=== PATIENT | male | born 1940 | race Caucasian/White ===

== ENCOUNTER → 2018-02-22 09:34 | Outpatient (CLI) | payer OTHER, SELFPAY ==
--- NOTE | 2018-02-22 09:37 | DI.CT.S_ITS ---
PROCEDURE: CT KIDNEY URETER BLADDER (KUB) INDICATIONS: 77 y/o M w/ hematuria Left flank pain, stone protocol TECHNIQUE: Noncontrast 5 mm thick sections acquired from the diaphragms to the symphysis. 5 mm thick coronal and sagittal reformats were then performed. For radiation dose reduction, the following was used: automated exposure control, adjustment of mA and/or kV according to patient size. COMPARISON: [facility], CT, ABDOMEN/PELVIS WITH CONTRAST, 01/08/2010, 0:14. FINDINGS: Image quality: Excellent. Lung bases: There is minimal atelectasis in the lung bases. Heart size is normal. A small hiatal hernia is present. Urinary system: There are 3 small clustered nonobstructing stones within the superior pole the right kidney measuring up to 0.3 cm. No hydronephrosis. There is mild nonspecific bilateral perinephric fat stranding. Both ureters appear non-dilated throughout their expected courses. There is mild concentric bladder wall thickening. No calcified bladder stones. No prostate is slightly enlarged. Other solid organs: There is a cyst in the right hepatic lobe measuring up to 1.4 cm increased from 0.9 cm previously as well as a few scattered additional low-density foci in the right and left lobes which are too small to characterize but likely represent cysts. 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 These demonstrate slight increase in size compared to the prior study. There is a small calcified gallstone in the gallbladder without wall thickening or pericholecystic fluid. Pancreas is normal in contours. Spleen is normal in size. No adrenal nodules. Peritoneum and bowel: Unenhanced bowel loops demonstrate normal wall thickness and caliber. The appendix is normal in appearance. Colonic diverticulosis is present without acute diverticulitis. No free fluid or air. Nodes and vessels: No retroperitoneal or mesenteric adenopathy by size criteria. Aorta and inferior vena cava are normal in caliber. Abdominal wall: No ventral hernias. Pelvis: No free pelvic fluid. No inguinal hernias or adenopathy. Bones: No suspicious bony lesions. No vertebral body compression fractures. IMPRESSION: 1. Right nephrolithiasis without evidence of obstructive uropathy. 2. Mild concentric bladder wall thickening may reflect a mild cystitis or sequelae of chronic bladder outlet obstruction given the presence of prostatic enlargement. 3. Cholelithiasis. 4. Diverticulosis. Dictated by: Dano Renae M.D. on 02/22/2018 at 10:28 Approved by: Dano Renae M.D. on 02/22/2018 at 10:35
== END ==
PROVIDERS: Visit Provider Physician Assistant
DX: N20.0 Calculus of kidney (principal); N40.0 Benign prostatic hyperplasia without lower urinary tract symptoms; R31.9 Hematuria, unspecified; K80.20 Calculus of gallbladder without cholecystitis without obstruction; K57.90 Diverticulosis of intestine, part unspecified, without perforation or abscess without bleeding
CPT/HCPCS: 74176

== ENCOUNTER 2019-06-09 16:49 | Emergency (ER) | payer OTHER, SELFPAY ==
[2019-06-09 16:58] VITALS: BP 145/72; PULSE 72; RESP 14; TEMP 36.4; O2SAT 97; BMI 21.3
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
[2019-06-09] MEDS: LIDOCAINE 1% (PF) 4 ML INJ (18:14)
[2019-06-09] MEDS: HYDROCODONE/ACET 5/325 TABLET 1 TAB PO (18:31)
[2019-06-09] MEDS: BACITRACIN OINT 0.9 GM PCKT 1 APPLIC TOP (18:32)
[2019-06-09] MEDS: HYDROGEN PEROXIDE 118 ML SOLUTION 60 ML TOP (18:50)
[2019-06-09 19:33] VITALS: BP 132/78; PULSE 72; RESP 18; O2SAT 98
--- NOTE | 2019-06-09 19:35 | PC.NURSE ---
multiple abrasions to face washed w/ bacitracin cover. Right ear lacerations dermabonded by Dr. Palencia. Sling to right arm w/ ice pack. Long discussion regarding expectation of bruising and increased generalized discomfort. Encouraged to be mobile, stretch and use ice to point tenderness with warmth for general relaxation.
== END 2019-06-09 19:39 | disposition home or self-care (01) ==
PROVIDERS: Emergency Provider Emergency Medicine; PCP Family Medicine Addiction Medicine
DX: S01.511A Laceration without foreign body of lip, initial encounter (principal); S50.311A Abrasion of right elbow, initial encounter; S60.812A Abrasion of left wrist, initial encounter; S60.811A Abrasion of right wrist, initial encounter; S52.021A Displaced fracture of olecranon process without intraarticular extension of right ulna, initial encounter for closed fracture; V19.9XXA Pedal cyclist (driver) (passenger) injured in unspecified traffic accident, initial encounter
CPT/HCPCS: 12011; 29105; 70450; 73080; 99283; 99284

== ENCOUNTER 2019-06-12 12:39 | Day surgery (SDC) | payer OTHER, SELFPAY ==
[2019-06-11 12:38] VITALS: BMI 21.1
[2019-06-12] VITALS (9 sets, daily range): BP systolic 115–172; BP diastolic 73–90; PULSE 61–68; RESP 8–16; TEMP 36.2–37.3; O2SAT 94–98; BMI 21.1
[2019-06-12] MEDS: LACTATED RINGERS 1,000 ML 42 ML IV ×2 (13:47→16:58)
--- NOTE | 2019-06-12 14:23 | PM.PREOP ---
Pre-operative Note Interval Note History & Physical reviewed/Exam performed by Physician: Yes Changes to H&P: No
[2019-06-12] MEDS: CEFAZOLIN 2 GM/100 ML FROZ.PIGGY IV (15:15)
--- NOTE | 2019-06-12 15:36 | SUR.OPER ---
Lateral on francis bag, head on pillow, gel axillary roll in place, bottom leg bent with gel pad under knee to foot, upper leg straight and supported with pillows. Left upper arm supported by pillows and secured over bottom arm to padded arm board, right arm under control of surgeon and PA. Safety belt at hip, tape over blanket lower legs.
[2019-06-12] MEDS: BUPIVACAINE 0.5% W/ EPI (PF) VIAL 30 ML INJ (15:45)
--- NOTE | 2019-06-12 16:38 | SUR.OPER ---
Ari Faust Arm time 1.17
--- NOTE | 2019-06-12 16:55 | P.OP_ITS ---
Operative Date/Time/Diagnoses Date of procedure: 06/12/19 Time of procedure: 15:00 Pre-op diagnosis: Right olecranon fracture Post-op diagnosis: same Procedure & Clinicians Procedure: Open reduction internal fixation of a right olecranon fracture Same procedure as scheduled: Yes Indications: Displaced right olecranon fracture Surgeon: Cody Ace Supervisor Tank Cleaning: Larissa Rutledge Anesthesia Type: General Operative Notes Findings: Displaced olecranon fracture with extension into the shaft with a 2nd large displaced fragment involving the proximal ulnar shaft Closure Type: primary Specimen(s): none sent Applied: implant(s) ([employer] olecranon plate) Estimated Blood Loss (mL): 20 Blood products transfused: none Tourniquet time (min): 75 Procedure in detail: On date of service, patient was met in the holding area where the operative site was signed and witnessed by the OR staff. The surgery was once again discussed with the patient and any remaining questions or concerns were answered to the patient's full satisfaction. Time-out was performed verifying patient's name procedure and operative site. Patient was taken back to the operating theater and placed on the operating table in a lateral position. Great care was taken to ensure that all bony prominences were appropriately padded. Well-padded tourniquet was placed up along the upper extremity. Another time-out was performed verifying patient's name, procedure, and operative site. The upper extremity was then prepped and draped in the normal sterile fashion. Esmarch was used to exsanguinate the limb and the tourniquet was turned up to 250 mm of mercury. Posterior incision was made starting just proximal to the displaced fracture fragment and extending along the ulnar shaft posteriorly. Ten blade was used to incise through skin and fascial tissue. Electrocautery was used to achieve hemostasis. Fifteen blade was then used to sharply dissect down until we had good visualization of the ulnar shaft as well as the displaced olecranon fragment. There was a 2nd large fragment coming off the proximal ulna that was displaced ulnarly. This fragment was reduced and held in place with a 2 point reduction forceps. A lag screw was then placed to secure that fragment back to the rest of the ulna. K-wires were then used to reduce the olecranon back to the ulna. C-arm was brought in to verify overall reduction. Once we were satisfied with the reduction a olecranon plate was placed and held provisionally with K-wires. This was also checked with C-arm. The plate was secured with a combination of locking and nonlocking screws distally securing the plate to the shaft. Locking screws were placed proximally securing the plate to the olecranon fragment. Three 5 screw was placed in the most proximal aspect of the plate through the olecranon fragment going down the shaft of the ulna up against the anterior cortex. This provided additional fixation to the olecranon. Final x-rays were obtained verifying plate positioning screw length as well as overall reduction. The wound was then copiously irrigated and closed in layered fashion. The arm was then cleaned, dried, and dressed. Patient was placed in a posterior splint. Patient was extubated and taken to the PACU in stable condition. Complications: none Post-operative Condition: stable Disposition: PACU Plan for aftercare: Patient will be in a splint until his 1st visit with physical therapy. After that visit the splint can be removed in a are no restrictions to range of motion. We will limit lifting for the next 6 weeks to 2-3 lb.
[2019-06-12] MEDS: HYDROCODONE/ACET 5/325 TABLET 1 TAB PO ×2 (17:52→18:28)
== END 2019-06-12 19:01 | disposition home or self-care (01) ==
PROVIDERS: PCP Internal Medicine; Visit Provider Orthopaedic Surgery
PROC: 0RSL04Z Reposition Right Elbow Joint with Internal Fixation Device, Open Approach (ICD-10-PCS; CPT 24685; principal; 2019-06-12 14:30)
DX: S52.021A Displaced fracture of olecranon process without intraarticular extension of right ulna, initial encounter for closed fracture (principal); Y93.55 Activity, bike riding; W01.0XXA Fall on same level from slipping, tripping and stumbling without subsequent striking against object, initial encounter
CPT/HCPCS: 24685; J0690; J1100; J2250; J2405; J2704; J3010